=== PATIENT | female | born 1980 | race Caucasian/White ===

== ENCOUNTER 2016-09-05 22:52 | Inpatient (IN) | payer OTHER ==
--- NOTE | ~2016-09-05 | HP ---
Unit #: [id number] #: [id number] Patient: CAROL RAI [id number] [place] [address] [id number] MR#: [id number] NAME: CAROL RAI ROOM: P211 Age: 35 Sex: F Admission Date: 09/05/2016 : 1980 Attending Physician: Sher Koch M.D. Admitting Physician: Sher Koch M.D. Primary Care Physician: Primary Care Physician No HISTORY AND PHYSICAL HISTORY OF PRESENT ILLNESS Carol is a 35 year old admitted to [address] [place] [address] because of her drug use. She snorts heroin. This is her first admission to [facility]. PAST MEDICAL HISTORY 1. Long history of opioid abuse to include snorting heroin. 2. COPD. PAST SURGICAL HISTORY Tubal ligation. ALLERGIES No known drug allergies. SOCIAL HISTORY Smokes greater than one pack per day. Denies alcohol. Admits to a long history of opioid abuse to include snorting heroin. FAMILY HISTORY Medically noncontributory. REVIEW OF SYSTEMS CONSTITUTIONAL: No fever or chills. HEENT: Denies any sore throat, ear pain or runny nose. CARDIOVASCULAR: Denies chest pain, irregular heart rhythm or palpitations. CHEST: Denies shortness of breath or cough. No hemoptysis. GASTROINTESTINAL: Denies nausea, vomiting, diarrhea or chronic constipation. ENDOCRINE: Denies history of increased thirst or urination. No recent significant weight loss or gain. GENITOURINARY: Denies dysuria, frequency, or hematuria. SKIN: Denies any rashes. HEMATOLOGIC: Denies history of increased bleeding or bruising. MUSCULOSKELETAL: Denies any hot, swollen joints. No generalized muscle pain. NEUROLOGIC: Denies problems with vision or speech. No frequent, severe headaches. No numbness, tingling or weakness in any extremities. Denies loss of bladder or bowel control. CURRENT MEDICATIONS Detox protocol Unit #: [id number] #: [id number] Patient: CAROL RAI PHYSICAL EXAMINATION GENERAL: Alert, well-nourished, in no apparent distress. VITAL SIGNS: Blood pressure 130/80, heart rate 92, respirations 16, temperature 98.6. WEIGHT: 140 pounds. HEIGHT: 5'0". SKIN: Warm and dry without rash or lesion. HEENT: Normocephalic. TMs not viewed. Oral and nasal passages clear. Conjunctivae clear. Pupils equal, round and reactive to light and accommodation. Extraocular movements intact. NECK: Supple without lymphadenopathy or thyromegaly. HEART: Regular rate and rhythm without murmur. LUNGS: Clear. ABDOMEN: Soft, nontender. : Not done. EXTREMITIES: No evidence of cyanosis, clubbing or edema. Moves all extremities without focal deficit. NEUROLOGICAL: Grossly within normal limits. Cranial Nerves: II: Visual huang are intact. III, IV AND : Extraocular movements are intact. Pupils are equal, round and reactive to light. V: Facial sensation is grossly normal. VII: Facial movements and expression are normal. VIII: Auditory acuity grossly intact. IX, X: Uvula is midline. Phonation is normal. XI: Patient shrugs shoulders and turns head normally. XII: Tongue protrudes in the midline. Sensory and Motor Function: Sensory and motor sensation is grossly normal. Motor: moves all extremities well. Coordination: Gait is normal. Deep Tendon Reflexes: Intact. IMPRESSION Psychiatric admission RECOMMENDATIONS PSYCHIATRIC: Per psychiatrist. MEDICAL: 1. I see no contraindications to participating in facility's activities. 2. Detox per protocol. MEDICAL PROGNOSIS Good. MEDICAL CONDITION Stable. Dictated by... Nader DominguezACaryn-Tavo. for Antolin Wallace/linda TD: 09/06/2016 23:30 JOB #: [id number] Unit #: [id number] #: [id number] Patient: CAROL RAI HISTORY AND PHYSICAL Page 1 of 1 X Isabella Koch HISTORY AND PHYSICAL
--- NOTE | ~2016-09-05 | PN ---
Unit #: [id number] #: [id number] Patient: CAROL GREGG [id number] [facility] [address] [place] [address] [id number] I MR#: [id number] NAME: CAROL GREGG ROOM: P211 Age: 35 Sex: F Admission Date: 09/05/2016 : 1980 Attending Physician: Sher Koch M.D. Admitting Physician: Sher Koch M.D. Primary Care Physician: Primary Care Physician Licha GALINDO NOTES DATE OF SERVICE: 09/07/2016 DISCUSSION Ms. Carol Gregg is a 35-year-old female, seen on 09/07/2016. The patient interviewed, chart reviewed, and obtained information from nursing staff. The patient currently on detox protocol and detox monitoring. The patient is compliant, cooperative, seclusive, isolative, guarded, flat affect, sad, dysphoric mood. REVIEW OF SYSTEMS Complete review of systems unremarkable. MENTAL STATUS EXAMINATION General appearance, the patient dressed casually. Attention span and concentration, fair. Oriented in time, place, and person. Mood and affect, sad and dysphoric. Speech, monotone. Thought process, concrete. The patient denied any thoughts of harming self or others. Recent and remote memory, poor. Insight and judgment, poor. DIAGNOSES 1. Opioid use disorder, moderate. 2. Cocaine use disorder, moderate. 3. Mood disorder, not otherwise specified. ASSESSMENT AND PLAN Advised to continue with current medication and therapeutic protocol. If needed, consider further adjustment of medication. Dictated by... Antolin Haile/claudia TD: 09/09/2016 03:46 JOB #: [id number] Unit #: [id number] #: [id number] Patient: CAROL GREGG EMPERATRIZDARLENE PROGRESS NOTES Page 1 of 1 X Sher Koch MD PROGRESS NOTE
--- NOTE | ~2016-09-05 | DS ---
Unit #: [id number] #: [id number] Patient: CAROL RAI [id number] [facility] [address] [place] [address] [id number] MR#: [id number] NAME: CAROL RAI ROOM: [facility] Age: 35 Sex: F Admission Date: 09/05/2016 : 1980 Discharge Date: 09/08/2016 Attending Physician: Sher Koch M.D. Primary Care Physician: Primary Care Physician No DISCHARGE SUMMARY REASON FOR ADMISSION Detox from heroin and cocaine. DIAGNOSTIC STUDIES LABORATORY RESULTS: Unremarkable except BUN 8. HOSPITAL COURSE The patient was admitted to inpatient unit on 09/05/2016 and discharged on 09/08/2016. The patient was treated with group therapy, individual therapy, and medication management. The patient responded well with the above modalities of treatment and detox protocol. The patient was subsequently discharged with a plan to follow up in outpatient program IOP level of care. DISCHARGE MEDICATIONS None. DISCHARGE DIAGNOSES Psychiatric: Opioid use disorder, severe, F11.20; cocaine use disorder, severe, F14.20. Secondary diagnosis: Deferred. Medical diagnosis: Chronic obstructive pulmonary disease. Stressors: Psychosocial stressors. DISCHARGE INSTRUCTIONS The patient to follow up in outpatient clinic as per social professionals. CONDITION ON DISCHARGE The patient was pleasant and cooperative. Denied any psychotic symptom or any suicidal ideation. PROGNOSIS Guarded. DIET AND ACTIVITY As tolerated. Dictated by... Sher Koch M.D. Unit #: [id number] #: [id number] Patient: CAROL RAI SZC/modl TD: 09/09/2016 02:18 JOB #: [id number] DISCHARGE SUMMARY Page 1 of 1 X Sher Koch MD X DISCHARGE SUMMARY
--- NOTE | ~2016-09-05 | PA ---
Unit #: [id number] #: [id number] Patient: CAROL RAI [id number] [place] [address] [id number] MR#: [id number] NAME: CAROL RAI ROOM: P211 Age: 35 Sex: F Admission Date: 09/05/2016 : 1980 Date of Assessment: Attending Physician: Sher Koch M.D. Admitting Physician: Sher Koch M.D. Primary Care Physician: Primary Care Physician No PSYCHIATRIC ASSESSMENT INFORMANT The patient's reliability, fair; chart reliability, good. CHIEF COMPLAINT Detox from heroin and cocaine. HISTORY OF PRESENT ILLNESS Ms. Cartagena is a 35-year-old female, presented with the above-mentioned complaint. The patient reported use of opioid and cocaine daily almost 1 g, last use today. The patient denied any suicidal or homicidal ideations. Denied any psychotic symptom. The patient reported tobacco use, age of onset 13, 1.5 pack daily; crack cocaine, age of onset 35; opioid, age of onset 32. The patient reported longest period of sobriety 2 weeks and last period of sobriety in 2014. The patient reported history of blackouts, history of withdrawal symptoms. No history of any IV drug use or any history of HIV or hepatitis. The patient is currently reporting symptoms such as restlessness, abdominal cramping, muscle cramping, depressed mood, headache, irritability, nervousness, poor concentration, and unpleasant dreams. The patient is needing inpatient admission at this time for psychiatric stabilization. PAST PSYCHIATRIC HISTORY Remarkable for history of previous treatment at [facility] in 2014. FAMILY HISTORY AND SOCIAL HISTORY The patient has a good support system from . History of addiction in multiple family members. No history of any abuse. MEDICAL HISTORY Remarkable for COPD. Musculoskeletal; muscle strength and tone, no atrophy or abnormal movement. Gait normal. MEDICATION HISTORY None. ALLERGIES No known drug allergies. SUBSTANCE ABUSE HISTORY See above. REVIEW OF SYSTEMS HEENT: Eyes, clear. Ears, nose, mouth, and throat; clear. Unit #: [id number] #: [id number] Patient: CAROL RAI CARDIOVASCULAR: Unremarkable. RESPIRATORY: Unremarkable. GI: Unremarkable. : Unremarkable. SKIN: Unremarkable. LYMPH NODE: Unremarkable. NEUROLOGIC: Unremarkable. ENDOCRINE: Unremarkable. HEMATOLOGIC: Unremarkable. ALLERGIC/IMMUNOLOGIC: Unremarkable. MUSCULOSKELETAL: Muscle strength and tone, no atrophy or abnormal movement. Gait normal except as mentioned above. MENTAL STATUS EXAMINATION CONSTITUTIONAL: Measurement of vital signs; temperature 98.3, pulse 69, respirations 16, blood pressure 129/81, height 5 feet, weight 140 pounds. GENERAL APPEARANCE: The patient dressed casually. The patient did not show any facial deformity. MUSCULOSKELETAL: Please see above. PSYCHIATRIC EXAMINATION Description of speech; regular rate, normal volume, normal articulation. Description of thought process, circumstantial. Description of association, guarded. Description of abnormal psychotic thinking; the patient denied any thoughts of harming self or others, but substance abuse guarded and paranoid. Description of the patient's judgment, concerning. Everyday activity, poor. Social situation, poor and concerning. Psychiatric condition, poor. Complete mental status examination; oriented in time, place, and person. Recent and remote memory, fair. Attention span and concentration, fair. Language, able to name object and repeat phrases. Fund of knowledge, aware of current event and passive vocabulary intact. Mood and affect, sad and dysphoric. Insight and judgment, fair to poor. ASSETS AND LIABILITIES Assets; the patient is articulate and able to take care of her ADL. Liability; history of depression and substance abuse. ADMITTING DIAGNOSES 1. Opioid use disorder, severe, F11.20. 2. Cocaine use disorder, severe, F14.20. Secondary diagnosis: Deferred. Medical diagnosis: chronic obstructive pulmonary disease. Stressors: Psychosocial stressors. PSYCHIATRIC PLAN, TREATMENT GOAL AND DISCHARGE PLAN 1. Advised to admit the patient on the inpatient unit. Provide safe, supportive, and structured environment. 2. Ordered labs; CBC, CMP, UA, and UDS. 3. Detox protocol and detox monitoring. The patient to attend all the programing. If needed, consider further adjustment of medication. The patient to attend all the programing on the inpatient unit. 4. Treatment goal to attain euthymic mood, gain insight into her problem, and learn coping skills. 5. Discharge plan; plan to stabilize the patient and consider followup in Unit #: [id number] #: [id number] Patient: CAROL RAI outpatient program. ESTIMATED LENGTH OF STAY 3 to 5 days. Dictated by... Antolin Haile/claudia TD: 09/07/2016 02:10 JOB #: [id number] PSYCHIATRIC ASSESSMENT Page 1 of 1 X Sher Koch MD PSYCHIATRIC ASSESSMENT
--- NOTE | ~2016-09-05 | PN ---
Unit #: [id number] #: [id number] Patient: CAROL GREGG [id number] [facility] [address] [place] [address] [id number] MR#: [id number] NAME: CAROL GREGG ROOM: P21 Age: 35 Sex: F Admission Date: 09/05/2016 : 1980 Attending Physician: Sher Koch M.D. Admitting Physician: Sher Koch M.D. Primary Care Physician: Primary Care Physician Licha HERNANDES PROGRESS NOTES DATE OF SERVICE 09/06/2016 DISCUSSION Ms. Carol Gregg is a 35-year-old female seen on 09/06/2016. The patient interviewed, chart reviewed. Obtained information from nursing staff. The patient continues to be isolative, guarded, flat affect. The patient's labs showed BUN 8. Otherwise, all the other labs are unremarkable. Complete Review of Systems: Unremarkable. MENTAL STATUS EXAMINATION General Appearance: The patient dressed casually. Attention span, concentration: Fair. Oriented in time, place, and person. Mood and affect: Sad, dysphoric, flat. Speech: Monotone. Thought process: [place]. The patient denied any thoughts of harming self or others. Recent and remote memory: Poor. Insight and judgment: Poor. DIAGNOSES 1. Opiate use disorder, severe. 2. Cocaine use disorder, severe. ASSESSMENT/PLAN Advised to continue with current medication and therapeutic protocol. If needed, consider further adjustment of medication. Dictated by... Antolin Haile/son TD: 09/07/2016 09:07 JOB #: [id number] Unit #: [id number] #: [id number] Patient: CAROL GREGG PEADARLENE PROGRESS NOTES Page 1 of 1 X Sher Koch MD X PROGRESS NOTE
[2016-09-06 09:27] LABS: BASOPHIL# 0.1 X10e3 (0-0.3); BASOPHIL% 0.7 % (0-2.5); EOSINOPHIL# 0.2 X10e3 (0-0.7); EOSINOPHIL% 2.4 % (0.0-7.0); HEMATOCRIT 44.2 % (35.0-45.0); HEMOGLOBIN 14.5 gm/dL (12.0-16.0); LYMPHOCYTE# 3.1 X10e3 (1.0-3.5); LYMPHOCYTE% 41.5 % (17.0-45.0); MEAN CELL VOLUME 92.9 FL (83-96); MEAN CORPUSCULAR HEMOGLOBIN 30.5 PG (28-34); MEAN CORPUSCULAR HGB CONC 32.8 g/dL (30-36); MEAN PLATELET VOLUME 8.1 FL (6.5-11.5); MONOCYTE# 0.5 X10e3 (0-1.0); MONOCYTE% 6.8 % (3.0-12.0); NEUTROPHIL# 3.6 X10e3 (1.5-7.1); NEUTROPHIL% 48.6 % (40-75); PLATELET COUNT 271 X10e3 (140-420); RED BLOOD COUNT 4.76 X10e (3.90-5.30); RED CELL DISTRIBUTION WIDTH 13.4 % (11.0-15.5); WHITE BLOOD COUNT 7.4 X10e3 (4.0-10.5)
[2016-09-06 09:39] LABS: ALBUMIN SERUM 3.6 g/dL (3.5-5.0); BILIRUBIN,TOTAL 0.3 mg/dL (0.2-2.0); BUN/CREATININE RATIO 11.42; CALCIUM SERUM 8.9 mg/dL (8.4-10.2); CREATININE SERUM 0.7 mg/dL (0.6-1.4); DIFF IND NO; GLOM FILT RATE Estimated 110.7 mL/min (>60); POTASSIUM 3.9 mmol/L (3.5-5.1); PROTEIN TOTAL SERUM 6.3 g/dL (6.0-8.3)
[2016-09-12 01:55] LABS: HA AB IGM (HEPPAN) Nonreactive (()); HB CORE AB IGM (HEPPAN) Nonreactive (Nonreactive); HB S AG (HEPPAN) Nonreactive (Nonreactive); HEP C AB (HEPPAN) Nonreactive (Nonreactive); HEP C AB SIGNAL TO CUTOFF 0.03 ratio (<1.00)
== END 2016-09-08 11:00 | disposition home or self-care (01) | DRG 897 ==
LOC: P2S 22:52
PROVIDERS: Psychiatry & Neurology Psychiatry
PROC: HZ2ZZZZ Detoxification Services for Substance Abuse Treatment (ICD-10-PCS; principal; 2016-09-05)
DX: F11.20 Opioid dependence, uncomplicated (principal); F14.20 Cocaine dependence, uncomplicated; J44.9 Chronic obstructive pulmonary disease, unspecified; F17.210 Nicotine dependence, cigarettes, uncomplicated; Z98.51 Tubal ligation status
CPT/HCPCS: 80053; 80074; 85025; 86592; 87806